=== PATIENT | male | born 1965 | race Caucasian/White ===

== ENCOUNTER 2021-10-29 13:05 | Emergency (ER) | payer OTHER, SELFPAY ==
--- NOTE | 2021-10-29 13:09 | ED.URI ---
HPI - URI/Sore Throat General Chief Complaint: Upper Respiratory Infection Stated Complaint: Cough Time Seen by Provider: 10/29/21 13:09 Source: patient and RN notes reviewed History of Present Illness HPI Narrative: Patient is a 56-year-old male who presents the urgent care with complaints of a cough for the last 2 weeks. Patient denies any shortness of breath, chest pain or wheezing. States that he has had no ill exposures. Denies of any fever or other upper respiratory complaints. Patient states he is taking Coricidin without any relief. Patient denies any history of pneumonia or bronchitis. No other acute complaints. No acute distress noted. Patient aware of the plan of care. Some parts of this dictation were generated by voice recognition software and may contain typographical and/or grammatical inaccuracies. Related Data Home Medications Medication Instructions Recorded Confirmed aspirin 81 mg tablet,delayed 81 mg PO DAILY 04/25/19 04/28/21 release (Adult Low Dose Aspirin) bupropion HCl 300 mg 24 hr tablet, 300 mg PO QAM 04/25/19 04/28/21 extended release (Wellbutrin XL) canagliflozin 50 mg-metformin 1 tablet PO BID 04/25/19 04/28/21 1,000 mg tablet (Invokamet) fluticasone propionate 50 1 spray intranasal DAILY 04/25/19 04/28/21 mcg/actuation nasal spray,suspension (Flonase Allergy Relief) hydrochlorothiazide 12.5 mg capsule 12.5 mg PO DAILY 04/25/19 04/28/21 liraglutide 0.6 mg/0.1 mL (18 mg/3 0.6 mg subcut DAILY 04/25/19 04/28/21 mL) subcutaneous pen injector (Victoza 2-Roel) omega-3 fatty acids 1,000 mg 1,000 mg PO BID 04/26/19 04/28/21 capsule (Fish Oil Concentrate) empagliflozin 5 mg-metformin 1,000 1 tablet PO ONCE 04/28/20 04/28/21 mg tablet (Synjardy) lisinopril 40 mg tablet 20 mg PO DAILY 04/28/20 04/28/21 Allergies Allergy/AdvReac Type Severity Reaction Status Date / Time No Known Allergies Allergy Mild Verified 04/28/21 14:57 Review of Systems Review of Systems: CONSTITUTIONAL: Denies fever, chills, or sweats. EYES: Denies visual changes, redness, or discharge. ENT: Denies rhinorrhea, congestion, sore throat, or otalgia. CARDIOVASCULAR: Denies chest pain, palpitations, or edema. RESPIRATORY: Reports of cough without dyspnea GASTROINTESTINAL: Denies abdominal pain, nausea, vomiting, or diarrhea. GENITOURINARY: Denies dysuria or hematuria. SKIN: Denies rash or itching. MUSCULOSKELETAL: Denies back pain, joint pain, or myalgia. NEUROLOGIC: Denies headache, numbness, or weakness. All other systems reviewed are negative, except as documented in HPI. [facility] Past Medical History Medical History Essential (primary) hypertension Obstructive sleep apnea Family History Family History Mother Family history of lymphoma Family history of malignant neoplasm of breast in first degree relative Sibling Family history of sleep apnea Father Diabetes mellitus Family history of cardiovascular disease Other Cerebrovascular accident Family history of coronary artery disease Hypertension Social History Social History Smoking status: Former smoker Smoking end date: 05/15/96 Alcohol intake: current Comments At the time of my signature, I reviewed and agree with the nursing past medical, surgical, social, and family history. There is no relevant family history pertinent to the patient complaint. Exam Narrative: GENERAL: This is a well-nourished, well-developed patient, in no apparent distress. HEAD: normocephalic, atraumatic. EYES: PERRL. Sclera clear/white. Vision is grossly intact. EARS: External ears normal, auditory canals clear and without drainage, TMs normal without perforation. Hearing grossly intact. NOSE: External nose normal with no obvious nasal discharge, nares without redness, clearrhinorrhea
[2021-10-29 13:20] VITALS: BP 141/75; PULSE 80; RESP 16; TEMP 36.1; O2SAT 100
== END 2021-10-29 13:37 | disposition home or self-care (01) ==
PROVIDERS: Emergency Provider Nurse Practitioner Family; PCP Family Medicine
DX: R05.9 Cough, unspecified (principal); Z87.891 Personal history of nicotine dependence; I10 Essential (primary) hypertension; G47.33 Obstructive sleep apnea (adult) (pediatric); Z79.82 Long term (current) use of aspirin
CPT/HCPCS: 99213; G0463